=== PATIENT | female | born 1960 | race Caucasian/White ===

== ENCOUNTER 2020-11-17 15:26 | Inpatient (IN) | payer OTHER ==
[2020-11-17] MEDS ORDERED: ACETAMINOPHEN 325 MG TABLET (FP) PO ONE (16:20)
[2020-11-17] MEDS ORDERED: SODIUM CHLORIDE 0.9% 500 ML INFUS.BAG IV ONE (16:21)
[2020-11-17] MEDS ORDERED: ACETAMINOPHEN 325 MG TABLET (FP) ONE (16:24)
[2020-11-17 17:06] LABS: BASO % 0.4 % (0-2.0); EOS % 0.6 % (0-4.5); HEMATOCRIT 36.9 % (32.4-45.2); HEMOGLOBIN 12.2 GM/dL (10.7-15.3); LYMPH % 12.8 % (8-40); MCH 31.1 pg (25.7-33.7); MCHC 33.1 g/dl (32.0-36.0); MEAN CELL VOLUME 94.1 fl (80-96); MONO % 10.5 % (3.8-10.2); NEUT % 75.7 % (42.8-82.8); PLATELET COUNT 352 K/MM3 (134-434); RBC 3.92 M/mm3 (3.60-5.2); RDW 13.5 % (11.6-15.6); WHITE BLOOD COUNT 13.7 K/mm3 (4.0-10.0)
[2020-11-17 17:12] LABS: INR 1.17 (0.83-1.09); PROTHROMBIN TIME (PATIENT) 14.3 SEC (9.7-13.0)
[2020-11-17 17:14] LABS: ACTIVATED PTT 26.2 SECONDS (25.2-36.5)
[2020-11-17 17:23] LABS: CHLORIDE 98 mmol/L (98-107); POTASSIUM 5.8 mmol/L (3.5-5.1); SODIUM 135 mmol/L (136-145)
[2020-11-17 17:25] LABS: ALBUMIN 3.1 g/dl (3.4-5.0); ANION GAP 10 MMOL/L (8-16); BLOOD UREA NITROGEN 22.5 mg/dL (7-18); CALCIUM 9.1 mg/dL (8.5-10.1); CO2 26 mmol/L (21-32)
[2020-11-17 17:26] LABS: GLUCOSE,RANDOM 190 mg/dL (74-106)
[2020-11-17 17:28] LABS: CREATININE 0.9 mg/dL (0.55-1.3); SGOT/AST 38 U/L (15-37); SGPT/ALT 22 U/L (13-61)
[2020-11-17 17:30] LABS: BILIRUBIN,TOTAL 0.6 mg/dL (0.2-1); TOT PROT 8.8 g/dl (6.4-8.2)
[2020-11-17 17:31] LABS: ALK PHOS 140 U/L (45-117)
[2020-11-17 17:37] LABS: EPI CELLS 20 /uL (0-25.1); HYALINE CASTS 0 /uL (0-3.1); URINE APPEARANCE CLEAR; URINE BACTERIA 4856 /uL (0-1359); URINE BILIRUBIN NEGATIVE (NEGATIVE); URINE COLOR YELLOW; URINE GLUCOSE (UA) 3+ (NEGATIVE); URINE KETONE 1+ (NEGATIVE); URINE LEUK ESTERASE TRACE (NEGATIVE); URINE NITRITE NEGATIVE (NEGATIVE); URINE PROTEIN TRACE (NEGATIVE); URINE RBC 71 /uL (0-23.9); URINE UROBILINOGEN 0.2 mg/dL (0.2-1.0); URINE WBC 92 /uL (0-25.8)
[2020-11-17] MEDS ORDERED: CEFTRIAXONE 1 GM in DEXTROSE 5%-WATER - 100 ML IVPB ONE (19:54)
[2020-11-17] MEDS ORDERED: CEFTRIAXONE 1 GM/50 ML BAG ONE (20:20)
[2020-11-17] MEDS ORDERED: ACETAMINOPHEN 1000 MG/100 ML VIAL (NON FORMULARY) IVPB ONE (22:40)
[2020-11-17] MEDS ORDERED: ACETAMINOPHEN INJECTION 100 ML IVPB ONE (22:41)
[2020-11-17] MEDS ORDERED: POLYETHYLENE GLYCOL 3350 119 GM BTL PO ONE (23:15)
[2020-11-17] MEDS ORDERED: QUEtiapine FUMARATE 200 MG TABLET PO ONE (23:30)
[2020-11-18] MEDS ORDERED: QUEtiapine FUMARATE 100 MG TABLET (FP) ONE (00:04)
[2020-11-18] MEDS: INSULIN SLIDING SCALE (NOVOLOG) 1 VIAL SQ SCH ×4 (00:15→23:06)
[2020-11-18] MEDS ORDERED: PIPERACILLIN/TAZOB 3.375 GM 3.375 GM/50 ML BAG IVPB ONE ×3 (01:13→19:59)
[2020-11-18] MEDS: PIPERACILLIN/TAZOB 3.375 GM 3.375 GM in DEXTROSE 5%-WATER - 50 ML IVPB SCH ×5 (01:23→20:46)
[2020-11-18] MEDS: SODIUM CHLORIDE 1,000 ML IV SCH (01:23)
[2020-11-18] MEDS ORDERED: PIPERACILLIN/TAZOB 3.375 GM 3.375 GM in DEXTROSE 5%-WATER - 50 ML IVPB SCH (03:00)
[2020-11-18 05:57] LABS: BASO % 0.7 % (0-2.0); EOS % 1.1 % (0-4.5); HEMATOCRIT 32.1 % (32.4-45.2); HEMOGLOBIN 10.9 GM/dL (10.7-15.3); LYMPH % 15.7 % (8-40); MCH 31.3 pg (25.7-33.7); MEAN CELL VOLUME 92.2 fl (80-96); MEAN PLT VOLUME 6.9 fl (7.5-11.1); MONO % 12.6 % (3.8-10.2); NEUT % 69.9 % (42.8-82.8); PLATELET COUNT 312 K/MM3 (134-434); RBC 3.48 M/mm3 (3.60-5.2); RDW 13.1 % (11.6-15.6); WHITE BLOOD COUNT 12.9 K/mm3 (4.0-10.0)
[2020-11-18 06:11] LABS: POTASSIUM 3.8 mmol/L (3.5-5.1)
[2020-11-18 06:14] LABS: ALBUMIN 2.6 g/dl (3.4-5.0); BLOOD UREA NITROGEN 18.7 mg/dL (7-18); CALCIUM 8.2 mg/dL (8.5-10.1)
[2020-11-18 06:17] LABS: CREATININE 0.7 mg/dL (0.55-1.3)
[2020-11-18 06:19] LABS: BILIRUBIN,TOTAL 0.3 mg/dL (0.2-1); TOT PROT 7.3 g/dl (6.4-8.2)
[2020-11-18] MEDS ORDERED: ACETAMINOPHEN 325 MG TABLET (FP) ONE (08:09)
[2020-11-18] MEDS: ACETAMINOPHEN 325 MG TABLET (FP) PO PRN ×2 (08:20→17:00)
[2020-11-18] MEDS ORDERED: POLYETHYLENE GLYCOL 3350 119 GM BTL PO PRN (08:45)
[2020-11-18] MEDS ORDERED: ENOXAPARIN NA (PORCINE) 40 MG/0.4 ML DISP.SYRIN SQ ONE (11:19)
[2020-11-18] MEDS: ENOXAPARIN NA (PORCINE) 40 MG/0.4 ML DISP.SYRIN SQ SCH (11:29)
[2020-11-18] MEDS ORDERED: POLYETHYLENE GLYCOL 3350 119 GM BTL PO SCH (22:00)
[2020-11-19] MEDS: SODIUM CHLORIDE 1,000 ML IV SCH (00:07)
[2020-11-19] MEDS ORDERED: QUEtiapine FUMARATE 200 MG TABLET PO ONE (00:25)
[2020-11-19] MEDS ORDERED: DEXTROSE 5%-WATER - 50 ML IVPB ONE ×4 (02:43→21:04)
[2020-11-19] MEDS ORDERED: PIPERACILLIN/TAZOBACTAM 3.375 GM VIAL IVPB ONE ×4 (02:43→21:04)
[2020-11-19] MEDS: PIPERACILLIN/TAZOB 3.375 GM 3.375 GM in DEXTROSE 5%-WATER - 50 ML IVPB SCH ×4 (02:46→21:06)
[2020-11-19] MEDS: INSULIN SLIDING SCALE (NOVOLOG) 1 VIAL SQ SCH ×4 (06:52→21:08)
[2020-11-19 08:41] LABS: BASO % 0.4 % (0-2.0); EOS % 2.4 % (0-4.5); HEMATOCRIT 31.7 % (32.4-45.2); HEMOGLOBIN 10.6 GM/dL (10.7-15.3); LYMPH % 18.6 % (8-40); MCH 31.3 pg (25.7-33.7); MCHC 33.5 g/dl (32.0-36.0); MEAN CELL VOLUME 93.5 fl (80-96); MONO % 12.7 % (3.8-10.2); NEUT % 65.9 % (42.8-82.8); PLATELET COUNT 329 K/MM3 (134-434); RBC 3.39 M/mm3 (3.60-5.2); RDW 13.3 % (11.6-15.6); WHITE BLOOD COUNT 11.7 K/mm3 (4.0-10.0)
[2020-11-19 09:00] LABS: POTASSIUM 3.7 mmol/L (3.5-5.1)
[2020-11-19 09:10] LABS: TOT PROT 7.3 g/dl (6.4-8.2)
[2020-11-19 09:15] LABS: ALBUMIN 2.5 g/dl (3.4-5.0); CALCIUM 8.3 mg/dL (8.5-10.1)
[2020-11-19 09:16] LABS: BLOOD UREA NITROGEN 17.2 mg/dL (7-18)
[2020-11-19 09:18] LABS: CREATININE 0.6 mg/dL (0.55-1.3)
[2020-11-19 09:23] LABS: BILIRUBIN,TOTAL 0.4 mg/dL (0.2-1)
[2020-11-19] MEDS: ENOXAPARIN NA (PORCINE) 40 MG/0.4 ML DISP.SYRIN SQ SCH (11:23)
[2020-11-19 11:41] LABS: ANISOCYTOSIS 0; MACROCYTOSIS 0; PLATELET ESTIMATE NORMAL
[2020-11-19] MEDS: ACETAMINOPHEN 325 MG TABLET (FP) PO PRN (15:20)
[2020-11-19] MEDS ORDERED: oxyCODONE HCL 5 MG TABLET PO PRN (17:06)
[2020-11-19] MEDS: DOCUSATE SODIUM 100 MG CAPSULE (FP) PO SCH (17:24)
[2020-11-19] MEDS: ALBUTEROL SO4 HFA INHALER IH SCH ×2 (19:22→21:10)
[2020-11-19] MEDS: ATORVASTATIN CA 10 MG TABLET (FP) PO SCH (21:06)
[2020-11-19] MEDS: SENNOSIDES 8.6MG TABLET (FP) PO SCH (21:06)
[2020-11-19] MEDS: GABAPENTIN 300 MG CAPSULE PO PRN (21:09)
[2020-11-20] MEDS: SODIUM CHLORIDE 1,000 ML IV SCH ×2 (02:45→21:16)
[2020-11-20] MEDS ORDERED: DEXTROSE 5%-WATER - 50 ML IVPB ONE ×2 (03:04→09:50)
[2020-11-20] MEDS ORDERED: PIPERACILLIN/TAZOBACTAM 3.375 GM VIAL IVPB ONE ×2 (03:04→09:50)
[2020-11-20] MEDS: PIPERACILLIN/TAZOB 3.375 GM 3.375 GM in DEXTROSE 5%-WATER - 50 ML IVPB SCH ×2 (03:26→10:11)
[2020-11-20] MEDS: ALBUTEROL SO4 HFA INHALER IH SCH ×5 (05:45→21:17)
[2020-11-20] MEDS: INSULIN SLIDING SCALE (NOVOLOG) 1 VIAL SQ SCH ×4 (06:05→21:16)
[2020-11-20] MEDS ORDERED: INSULIN (NOVOLOG) ASPART 100 UNITS/ML 10ML VIAL ONE (06:08)
[2020-11-20 09:12] LABS: BASO % 0.5 % (0-2.0); EOS % 2.9 % (0-4.5); HEMATOCRIT 30.7 % (32.4-45.2); HEMOGLOBIN 10.3 GM/dL (10.7-15.3); LYMPH % 19.5 % (8-40); MCH 31.4 pg (25.7-33.7); MCHC 33.7 g/dl (32.0-36.0); MEAN CELL VOLUME 93.3 fl (80-96); MEAN PLT VOLUME 7.2 fl (7.5-11.1); MONO % 13.1 % (3.8-10.2); PLATELET COUNT 321 K/MM3 (134-434); RBC 3.29 M/mm3 (3.60-5.2); RDW 13.2 % (11.6-15.6); WHITE BLOOD COUNT 10.7 K/mm3 (4.0-10.0)
[2020-11-20] MEDS ORDERED: PT OWN MED DRAWER 7, Y5N ONE ×2 (09:31→11:19)
[2020-11-20 10:07] LABS: BLOOD UREA NITROGEN 14.4 mg/dL (7-18)
[2020-11-20 10:10] LABS: CREATININE 0.6 mg/dL (0.55-1.3)
[2020-11-20] MEDS: DOCUSATE SODIUM 100 MG CAPSULE (FP) PO SCH (10:11)
[2020-11-20] MEDS: ENOXAPARIN NA (PORCINE) 40 MG/0.4 ML DISP.SYRIN SQ SCH (10:11)
[2020-11-20 10:22] LABS: POTASSIUM 3.8 mmol/L (3.5-5.1)
[2020-11-20] MEDS: ERTAPENEM SODIUM 1 GM in SODIUM CHLORIDE 50 ML IVPB SCH (14:14)
[2020-11-20 15:18] VITALS: BMI 22.4
[2020-11-20] MEDS: GABAPENTIN 300 MG CAPSULE PO PRN (21:15)
[2020-11-20] MEDS: ACETAMINOPHEN 325 MG TABLET (FP) PO PRN (21:15)
[2020-11-20] MEDS: SENNOSIDES 8.6MG TABLET (FP) PO SCH (21:15)
[2020-11-20] MEDS: ATORVASTATIN CA 10 MG TABLET (FP) PO SCH (21:15)
[2020-11-21] MEDS: ALBUTEROL SO4 HFA INHALER IH SCH ×3 (06:30→15:03)
[2020-11-21] MEDS: INSULIN SLIDING SCALE (NOVOLOG) 1 VIAL SQ SCH ×2 (07:00→12:11)
[2020-11-21] MEDS: SODIUM CHLORIDE 1,000 ML IV SCH (07:02)
[2020-11-21 08:46] LABS: BASO % 0.5 % (0-2.0); EOS % 2.7 % (0-4.5); HEMATOCRIT 32.2 % (32.4-45.2); HEMOGLOBIN 10.9 GM/dL (10.7-15.3); LYMPH % 24.3 % (8-40); MCH 31.3 pg (25.7-33.7); MCHC 33.7 g/dl (32.0-36.0); MEAN CELL VOLUME 92.9 fl (80-96); MEAN PLT VOLUME 6.7 fl (7.5-11.1); MONO % 12.2 % (3.8-10.2); NEUT % 60.3 % (42.8-82.8); PLATELET COUNT 363 K/MM3 (134-434); RBC 3.47 M/mm3 (3.60-5.2); RDW 13.3 % (11.6-15.6); WHITE BLOOD COUNT 9.8 K/mm3 (4.0-10.0)
[2020-11-21 09:14] LABS: CALCIUM 8.4 mg/dL (8.5-10.1)
[2020-11-21 09:15] LABS: BLOOD UREA NITROGEN 14.2 mg/dL (7-18)
[2020-11-21 09:18] LABS: CREATININE 0.5 mg/dL (0.55-1.3)
[2020-11-21] MEDS ORDERED: MULTIVITAMINS (DAILY MVI) TABLET (FP) PO SCH (10:00)
[2020-11-21] MEDS: ERTAPENEM SODIUM 1 GM in SODIUM CHLORIDE 50 ML IVPB SCH (10:27)
[2020-11-21] MEDS: DOCUSATE SODIUM 100 MG CAPSULE (FP) PO SCH (10:28)
[2020-11-21] MEDS: ENOXAPARIN NA (PORCINE) 40 MG/0.4 ML DISP.SYRIN SQ SCH (10:28)
[2020-11-21 15:53] VITALS: BP 106/61; PULSE 91; TEMP 98.4
[2020-11-21 17:18] LABS: EPI CELLS 7 /uL (0-25.1); HYALINE CASTS 0 /uL (0-3.1); PH,URINE 6.5 (5.0-8.0); URINE APPEARANCE CLEAR; URINE BACTERIA 154 /uL (0-1359); URINE BILIRUBIN NEGATIVE (NEGATIVE); URINE COLOR YELLOW; URINE GLUCOSE (UA) 3+ (NEGATIVE); URINE KETONE NEGATIVE (NEGATIVE); URINE LEUK ESTERASE NEGATIVE (NEGATIVE); URINE NITRITE NEGATIVE (NEGATIVE); URINE PROTEIN NEGATIVE (NEGATIVE); URINE RBC 28 /uL (0-23.9); URINE UROBILINOGEN 0.2 mg/dL (0.2-1.0); URINE WBC 18 /uL (0-25.8)
== END 2020-11-21 17:56 | disposition home or self-care (01) | DRG 720 ==
LOC: JER 15:26 → JERBED 20:32 → J8W 11-18 23:23
PROVIDERS: ADMIT Internal Medicine; ATTEND Internal Medicine
DX: A41.89 Other specified sepsis (principal); N12 Tubulo-interstitial nephritis, not specified as acute or chronic; E78.5 Hyperlipidemia, unspecified; E11.9 Type 2 diabetes mellitus without complications; I10 Essential (primary) hypertension; F31.9 Bipolar disorder, unspecified; F41.0 Panic disorder [episodic paroxysmal anxiety]; R63.4 Abnormal weight loss; Z68.22 Body mass index [BMI] 22.0-22.9, adult; E43 Unspecified severe protein-calorie malnutrition; R29.6 Repeated falls; E87.5 Hyperkalemia; B96.20 Unspecified Escherichia coli [E. coli] as the cause of diseases classified elsewhere; J98.11 Atelectasis; K59.09 Other constipation; M84.48XA Pathological fracture, other site, initial encounter for fracture; M54.9 Dorsalgia, unspecified; J44.9 Chronic obstructive pulmonary disease, unspecified; N39.0 Urinary tract infection, site not specified; K76.0 Fatty (change of) liver, not elsewhere classified; N17.9 Acute kidney failure, unspecified; Z96.642 Presence of left artificial hip joint
CPT/HCPCS: 36415; 70450-TC; 71045-TC-FY; 72125-TC; 72128-TC; 72131-TC; 72170-TC-FY; 73562-TC-LT-FY; 73562-TC-RT-FY; 74177-TC; 80048; 80053; 81003; 82550; 82962; 83036; 83540; 83550; 83605; 83735; 84100; 84132; 84443; 84484; 85025; 85610; 85730; 86769; 87040; 87086; 87186; 93005; 93010; 97116-GP; 97161-GP; 99285-25; C9803; J0131; Q9967; U0003

== ENCOUNTER 2021-04-10 11:52 | Emergency (ER) | payer OTHER ==
[2021-04-10 12:05] VITALS: BMI 22.1
[2021-04-10] MEDS ORDERED: SODIUM CHLORIDE 1,000 ML IV STA (12:48)
[2021-04-10] MEDS ORDERED: methylPREDNISolone NA SUCC 125 MG/2 ML VIAL IVPUSH ONE (12:51)
[2021-04-10] MEDS ORDERED: methylPREDNISolone NA SUCC 125 MG/2 ML VIAL ONE (13:29)
[2021-04-10 13:57] LABS: VENOUS BASE EXCESS -7.4 mmol/L (-2-2); VENOUS O2 SATURATION 73.8 % (70-80); VENOUS PCO2 50.5 mmHg (38-52); VENOUS PH 7.225 (7.310-7.410)
[2021-04-10 14:04] LABS: BASO % 0.6 % (0-2.0); HEMATOCRIT 40.2 % (32.4-45.2); HEMOGLOBIN 13.6 GM/dL (10.7-15.3); LYMPH % 28.1 % (8-40); MCH 31.6 pg (25.7-33.7); MCHC 33.7 g/dl (32.0-36.0); MEAN CELL VOLUME 93.8 fl (80-96); MEAN PLT VOLUME 6.8 fl (7.5-11.1); MONO % 8.5 % (3.8-10.2); NEUT % 61.8 % (42.8-82.8); PLATELET COUNT 317 10^3/uL (134-434); RBC 4.29 M/mm3 (3.60-5.2); RDW 13.4 % (11.6-15.6); WHITE BLOOD COUNT 8.7 K/mm3 (4.0-10.0)
[2021-04-10 14:17] LABS: CHLORIDE 105 mmol/L (98-107); SODIUM 137 mmol/L (136-145)
[2021-04-10] MEDS ORDERED: ALBUTEROL SO4 2.5/IPRATROPIUM 0.5 INH SOL 3 ML VIAL.NEB. NEB ONE (14:17)
[2021-04-10 14:18] LABS: ALBUMIN 3.6 g/dl (3.4-5.0); ANION GAP 10 MMOL/L (8-16); BLOOD UREA NITROGEN 13.2 mg/dL (7-18); CALCIUM 8.9 mg/dL (8.5-10.1); CO2 23 mmol/L (21-32); GLUCOSE,RANDOM 162 mg/dL (74-106)
[2021-04-10 14:21] LABS: CREATININE 0.6 mg/dL (0.55-1.3); SGOT/AST 16 U/L (15-37); SGPT/ALT 19 U/L (13-61)
[2021-04-10 14:24] LABS: ALK PHOS 100 U/L (45-117); BILIRUBIN,TOTAL 0.4 mg/dL (0.2-1); TOT PROT 7.8 g/dl (6.4-8.2)
[2021-04-10] MEDS: ALBUTEROL SO4 2.5/IPRATROPIUM 0.5 INH SOL 3 ML VIAL.NEB. NEB SCH ×3 (14:24→15:10)
[2021-04-10 14:47] VITALS: BP 136/78; PULSE 82; TEMP 98
[2021-04-10 15:04] LABS: ARTERIAL BLD GAS O2 SATURATION 99.5 % (95-98); ARTERIAL BLOOD GAS pH 7.359 (7.350-7.450)
[2021-04-10 15:05] LABS: ALLENS TEST POSITIVE
[2021-04-10 15:22] LABS: URINE APPEARANCE CLEAR; URINE BILIRUBIN NEGATIVE (NEGATIVE); URINE COLOR YELLOW; URINE GLUCOSE (UA) 3+ (NEGATIVE); URINE KETONE 1+ (NEGATIVE); URINE LEUK ESTERASE NEGATIVE (NEGATIVE); URINE NITRITE NEGATIVE (NEGATIVE); URINE PROTEIN NEGATIVE (NEGATIVE); URINE UROBILINOGEN 0.2 mg/dL (0.2-1.0)
[2021-04-10] MEDS ORDERED: AZITHROMYCIN 250 MG TABLET PO ONE (15:39)
[2021-04-10] MEDS ORDERED: AZITHROMYCIN 250 MG TABLET ONE (15:58)
== END 2021-04-10 16:16 | disposition home or self-care (01) ==
LOC: JER 11:52
PROC: 3E0F7GC Introduction of Other Therapeutic Substance into Respiratory Tract, Via Natural or Artificial Opening (ICD-10-PCS; principal; 2021-04-10)
PROC: 3E033NZ Introduction of Analgesics, Hypnotics, Sedatives into Peripheral Vein, Percutaneous Approach (ICD-10-PCS; 2021-04-10)
PROC: 3E0337Z Introduction of Electrolytic and Water Balance Substance into Peripheral Vein, Percutaneous Approach (ICD-10-PCS; 2021-04-10)
DX: R53.1 Weakness (principal); J45.909 Unspecified asthma, uncomplicated; R06.02 Shortness of breath
CPT/HCPCS: 36415; 36600; 71046-TC-FY; 80053; 81003; 82375; 82550; 82803; 82962; 84484; 85025; 87086; 87186; 93005; 93010; 99285-25; C9803; U0003; U0005

== ENCOUNTER 2021-04-17 21:43 | Emergency (ER) | payer OTHER ==
[2021-04-17 22:04] VITALS: TEMP 98.4; BMI 21.5
[2021-04-17] MEDS ORDERED: SODIUM CHLORIDE 0.9% 500 ML INFUS.BAG IV ONE (23:40)
[2021-04-17] MEDS ORDERED: diazePAM CARPU-JECT 10 MG/2 ML DISP.SYRIN IVPUSH ONE (23:42)
[2021-04-17] MEDS ORDERED: diazePAM CARPU-JECT 10 MG/2 ML DISP.SYRIN ONE (23:49)
[2021-04-18] LABS: BASO % 0.6 % (0-2.0); EOS % 2.4 % (0-4.5); HEMATOCRIT 41.3 % (32.4-45.2); LYMPH % 41.5 % (8-40); MCH 32.1 pg (25.7-33.7); MEAN CELL VOLUME 94.5 fl (80-96); MEAN PLT VOLUME 7.5 fl (7.5-11.1); MONO % 6.4 % (3.8-10.2); NEUT % 49.1 % (42.8-82.8); PLATELET COUNT 372 10^3/uL (134-434); RBC 4.36 M/mm3 (3.60-5.2); RDW 13.4 % (11.6-15.6); WHITE BLOOD COUNT 9.8 K/mm3 (4.0-10.0)
[2021-04-18 00:17] LABS: CHLORIDE 102 mmol/L (98-107); SODIUM 139 mmol/L (136-145)
[2021-04-18 00:19] LABS: CALCIUM 8.7 mg/dL (8.5-10.1)
[2021-04-18 00:20] LABS: ALBUMIN 3.5 g/dl (3.4-5.0); ANION GAP 10 MMOL/L (8-16); BLOOD UREA NITROGEN 15.1 mg/dL (7-18); CO2 27 mmol/L (21-32); GLUCOSE,RANDOM 188 mg/dL (74-106)
[2021-04-18 00:23] LABS: CREATININE 0.8 mg/dL (0.55-1.3); SGOT/AST 21 U/L (15-37); SGPT/ALT 26 U/L (13-61)
[2021-04-18 00:25] LABS: BILIRUBIN,TOTAL 0.3 mg/dL (0.2-1); TOT PROT 7.4 g/dl (6.4-8.2)
[2021-04-18 00:26] LABS: ALK PHOS 88 U/L (45-117)
[2021-04-18 00:28] LABS: N-TERMINAL BNP 24.5 pg/ml (5-125)
[2021-04-18 01:04] LABS: LACTIC ACID 2.6 mmol/L (0.4-2.0)
[2021-04-18] MEDS ORDERED: SODIUM CHLORIDE 0.9% 500 ML INFUS.BAG IV ONE (02:03)
[2021-04-18 03:50] VITALS: BP 118/64; PULSE 71
== END 2021-04-18 03:54 | disposition home or self-care (01) ==
LOC: JER 21:43
PROC: 3E033NZ Introduction of Analgesics, Hypnotics, Sedatives into Peripheral Vein, Percutaneous Approach (ICD-10-PCS; principal; 2021-04-17)
DX: F13.239 Sedative, hypnotic or anxiolytic dependence with withdrawal, unspecified (principal)
CPT/HCPCS: 36415; 71045-TC-FY; 80053; 82550; 83605; 83880; 84484; 85025; 93005; 93010; 99284-25

== ENCOUNTER 2023-03-08 12:52 | Emergency (ER) | payer OTHER ==
[2023-03-08 13:05] VITALS: BP 118/69; RESP 18; TEMP 98.5; BMI 22.1
[2023-03-08] MEDS ORDERED: ALBUTEROL SO4 0.083% IH SOL 2.5 MG/3 ML VIAL.NEB. NEB ONE ×2 (14:27→14:45)
[2023-03-08] MEDS ORDERED: DEXAMETHASONE SOD PHOSPHATE 10 MG/1 ML VIAL IM ONE (14:27)
[2023-03-08] MEDS ORDERED: AZITHROMYCIN 250 MG TABLET PO ONE (14:28)
[2023-03-08] MEDS ORDERED: DEXAMETHASONE SOD PHOSPHATE 10 MG/1 ML VIAL ONE (14:45)
[2023-03-08] MEDS ORDERED: AZITHROMYCIN 500 MG TABLET ONE (14:45)
[2023-03-08 15:30] VITALS: PULSE 90
== END 2023-03-08 15:28 | disposition home or self-care (01) ==
LOC: JER 12:52
PROC: 3E023GC Introduction of Other Therapeutic Substance into Muscle, Percutaneous Approach (ICD-10-PCS; principal; 2023-03-08)
PROC: 3E0F7GC Introduction of Other Therapeutic Substance into Respiratory Tract, Via Natural or Artificial Opening (ICD-10-PCS; 2023-03-08)
DX: R06.02 Shortness of breath (principal); R05.9 Cough, unspecified; R09.3 Abnormal sputum; J44.1 Chronic obstructive pulmonary disease with (acute) exacerbation; R00.0 Tachycardia, unspecified
CPT/HCPCS: 99284-25; J1100